=== PATIENT | female | born 1995 | race Hispanic/Latino ===

== ENCOUNTER 2016-03-07 21:20 | Emergency (ER) | payer OTHER ==
[~2016-03-07] VITALS: Ht 154.9 cm; Wt 75.0 kg
[~2016-03-07 21:20] MED LIST: Ascorbic Acid PO; DOCU-41 PO; FERR-74 PO; IBUP-1827 PO; PREN-56 PO
[2016-03-07 21:38] VITALS: BP 137/78; PULSE 120; RESP 18; O2SAT 98
--- NOTE | 2016-03-08 00:38 | ED.REPORT ---
HPI-General Illness Date of Service Mar 08, 2016 ED Provider: Mike Kramer MD Pt is a 20 y.o. female with a hx of asthma who presents to the ED c/o fever ( subjective) onset 3 days ago. Associated myalgias, rhinorrhea, congestion, cough , chills, and fatigue. Pt states that she received her flu vaccination 5 days ago. Nursing Notes Stated Complaint: FEVER RUNNY NOSE Chief Complaint: FLU/Cold Symptoms Nursing Notes Reviewed: Yes Allergies: Coded Allergies: No Known Allergies (Verified , 03/07/16) Scheduled ([Ascorbic Acid]) 500 MG TABLET 500 MG PO BIDWM Docusate Sodium (Colace) 100 Mg Capsule 100 MG PO BID Ferrous Sulfate (Feosol) 325 Mg Tablet 325 MG PO BIDWM Oseltamivir Phosphate (Tamiflu) 75 Mg Capsule 75 MG PO BID [id number]/Iron Fumarate/FA/Dss ( 19 Tablet) 1 Each Tablet 1 EACH PO DAILY Scheduled PRN Ibuprofen (Ibuprofen) 600 Mg Tablet 600 MG PO Q6H PRN PRN For Mild Pain General Time Seen by MD: 00:37 Chief Complaint Fever Hx Obtained From: Patient Arrived By: Walk-in Sudden in Onset?: Yes Onset Occurred: 3 days ago Symptom Duration: Since onset Recent Healthcare: No recent doctor visit, No recent hospitalization Similar Sx Previous: No Past Medical History Patient History: Patient reports no known family medical history. Past Medical History History of Kidney Stones Reports: Asthma Past Surgical History Appendectomy Smoking History Never Smoker Ambulatory Status Independent Review of Systems Full Review of Systems Constitutional: Reports: Chills, Fatigue, Fever (Subjective) Ears / Nose / Throat: Reports: Nasal congestion Respiratory: Reports: Non-productive cough Musculoskeletal: Reports: Myalgia Allergy / Immune: Reports: Rhinorrhea Complete sys rev & neg: except as marked. Physical Exam Vital Signs Vital Signs Date Time Temp Pulse Resp B/P Pulse Ox O2 Delivery O2 Flow Rate FiO2 03/08/16 01:13 120 03/07/16 21:38 38.7 120 18 137/78 98 Room Air Nasal Cannula Initial VS: Reviewed Abdomen / GI: No distention Extremities: Vascular intact, Neuro intact Skin: Warm, Dry, No cyanosis Neurologic: Alert, Oriented, Nonfocal Psychiatric: Mood/affect normal, Behavior normal, Normal thought content General/Constitutional: Awake, Alert, No acute distress, Well appearing, Well developed, Well hydrated, Well nourished, Not toxic appearing Head / Eyes: Atraumatic, Normocephalic, PERRL Conjunctiva / Sclera: Positive: Injected left (Mild), Injected right (Mild) Respiratory / Chest: Atraumatic, Breath sounds NL, Breath sounds = bilat, No respiratory distress, No rales, No rhonchi, No wheezing, No retractions, No stridor Cough present upon examination Cardiovascular: Regular rhythm, Heart sounds NL, No gallop, No murmurs, No rubs , Peripheral circulation NL Heart Rate / Rhythm: Positive: Tachycardia Interpretation & Diagnostics Lab Results Interpretation Lab Results Interpretation: Influenza A positive Re-Eval/Medical Decision Med Decision/Clinical Course 20-year-old with mild asthma presents with flu symptoms and in fact has the flu. Sent home with Tamiflu, Decadron tonight and again tomorrow. Continue albuterol. Follow up with PCP. Source of Hx: Old records Time of Eval: 00:40 Re-Evaluation/Progress Note: Physical exam performed. Discussed lab results and plan for discharge, pt understands and agrees with plan. Counseled Regarding: Diagnosis, Lab results, Need for follow-up, When/why to return to ED Discharge & Departure Shift Change Sign-Out Response to Therapy: Improved Primary Impression: Influenza due to influenza A virus Additional Impression: Asthma Asthma severity: mild persistent Asthma complication type: uncomplicated Qualified Code: J45.30 - Mild persistent asthma, uncomplicated Disposition: Home Discharge Condition All VS Reviewed: Yes Condition: Stable Additional Instructions: Take Tamiflu twice daily for five days. Take a single additional dose of Decadron tomorrow at about noon Continue your metered-dose inhaler every four hours as needed for cough\ Follow-up with your doctor in the office Return if any immediate issues with her breathing or other new symptoms of concern Regular dosing with Tylenol and/or Motrin as needed for fever and aches. Referrals: Marychuy Crocker MD (PCP) Jason Benito MD (Family) Itzel Attestation Portions of this note were transcribed by Juventino Solis. I, Dr. Kramer personally performed the history, physical exam and medical decision-making; I reviewed and confirmed the accuracy of the information in the transcribed note. Signed by: Itzel Hunter, 03/08/16 and 0051. copies to: Jason Benito MD; Marychuy Crocker MD, Christopher W MD Mar 08, 2016 00:38 JUVENTINO SOLIS Mar 08, 2016 00:49
[2016-03-08] MEDS ORDERED: Dexamethasone 20 mg/2 mL Oral Solution PO ONE (00:45)
[2016-03-08] MEDS ORDERED: TAM75UDCAP PO (00:48)
[2016-03-08 01:13] VITALS: PULSE 120
== END 2016-03-08 01:13 | disposition home or self-care (01) ==
LOC: SED 21:20
DX: J10.89 Influenza due to other identified influenza virus with other manifestations (principal); J45.30 Mild persistent asthma, uncomplicated; M79.1 Myalgia; Z90.49 Acquired absence of other specified parts of digestive tract

== ENCOUNTER 2016-05-28 19:05 | Emergency (ER) | payer OTHER ==
[~2016-05-28] VITALS: Ht 154.9 cm; Wt 75.0 kg
[~2016-05-28 19:05] MED LIST changes: +TAM75UDCAP PO
[2016-05-28 19:08] VITALS: BP 130/81; PULSE 120; RESP 20; O2SAT 99
[2016-05-28 19:37] LABS: APPEARANCE,URINE SLIGHTLY CLOUDY (CLEAR,HAZY); COLOR,URINE YELLOW (YELLOW); PH,URINE 6.5 (5.0-8.0)
[2016-05-28 19:38] LABS: OCCULT BLOOD,URINE TRACE (NEGATIVE)
[2016-05-28 19:42] LABS: BASOPHILS % (AUTO) 0.2 % (0-3); EOSINOPHILS % (AUTO) 0.2 % (0-5); MONOCYTES % (AUTO) 2.2 % (4-12); Mean Corpuscular Hemoglobin 24.7 pg (27.0-35.0); Mean Corpuscular Volume 77.7 fL (81-100); NEUTROPHILS % (AUTO) 87.8 % (40-74); Platelet Count 252 bil/L (150-400)
[2016-05-28 20:05] LABS: Magnesium 1.6 mg/dL (1.6-2.6)
[2016-05-28 21:18] VITALS: BP 107/59; PULSE 124; RESP 26; O2SAT 96
[2016-05-28] MEDS ORDERED: cefTRIAXone Inj 2,000 MG in Dextrose 5% Minibag Plus 50 ML IV ONE (21:25)
[2016-05-28] MEDS ORDERED: 0.9% Sodium Chloride 1,000 ML IV ONE (21:25)
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
[2016-05-28] MEDS ORDERED: _Amoxicillin-Clavulanate 875-125 mg Tablet PO SCH (22:45)
[2016-05-28 23:44] VITALS: PULSE 84; RESP 16
--- NOTE | 2016-05-29 09:21 | DRSVH ---
PROCEDURE: US RETROPERITONEAL SONOGRAM ([id number]) INDICATIONS: Flank pain, ho stones, TECHNIQUE: Real-time scanning was performed of the kidneys and bladder, with image documentation. COMPARISON: None. FINDINGS: Kidneys: Kidneys are normal in size. Right kidney measures 12.2 cm long; left kidney measures 2.3 c m long. Right renal cortical thickness is 12.0 cm; left renal cortical thickness is 2.1 cm. Renal c ortical echotexture is normal. No hydronephrosis or nephrolithiasis. No suspicious solid mass lesio ns. Bladder: Urinary bladder is suboptimally distended and grossly normal. Miscellaneous: No free pelvic fluid. IMPRESSION: Normal kidneys. Dictated by: Terell Sawyer RR Interpreted: Raul Barroso MD on 05/29/2016 at 9:19 Transcribed by: FREDERICK on 05/29/2016 at 9:20 Approved by: Raul Barroso M.D. on 05/29/2016 at 10:52
--- NOTE | 2016-05-29 09:26 | DRSVH ---
PROCEDURE: US OB<14 WKS INDICATIONS: pain ro ectoptic TECHNIQUE: Real-time scanning was performed of the fetus and maternal pelvic organs, with image documentation. Endovaginal scanning was also performed to better visualize the fetus and maternal ovaries. COMPARISON: None. FINDINGS: Embryo: [employer] Ultrasound Procedure Report Early Gestation [employer] [place] Rump Length: 4.8 cm Gestational Age (CRL): 11 weeks 4 days. Summary Fetus Summary Heart Rate: 179 beats per minute Comments: A normal yolk sac is noted. No perigestational bleeds. Measurement variability in dating: +/- 4 weeks by LMP, +/- 7 days by mean sac diameter (use before 6 weeks gestation if crown-rump length not able to be measured), +/- 5 days by crown-rump length (6-12 weeks gestation). Maternal organs: Left ovary not visualized. Normal right ovary. IMPRESSION: 11 week 4 day single living IUP. Dictated by: Terell NAVAS Interpreted: Raul Barroso MD on 05/29/2016 at 9:23 Transcribed by: FREDERICK on 05/29/2016 at 9:25 Approved by: Raul Barroso M.D. on 05/29/2016 at 10:52
== END 2016-05-28 23:45 | disposition home or self-care (01) ==
LOC: SED 19:05
DX: O23.01 Infections of kidney in pregnancy, first trimester (principal); J45.909 Unspecified asthma, uncomplicated; Z3A.11 11 weeks gestation of pregnancy; Z87.440 Personal history of urinary (tract) infections; Z87.442 Personal history of urinary calculi; Z90.89 Acquired absence of other organs
CPT/HCPCS: 36415; 76770; 76801; 80053; 81000; 81025; 83690; 83735; 84702; 85025; 87040; 87086; 87088; 96361; 96365; 99285; J0696; J7030